=== PATIENT | female | born 1985 | race Caucasian/White ===

== ENCOUNTER → 2020-07-22 | Outpatient (CLI) | payer OTHER ==
[~2020-07-22] MED LIST: DOCUSATE SODIU100 MG PO; HYDROCODON-ACE1 EAC4 PO; IBUPROFEN600 MG PO
== END ==
LOC: RAD 13:11
DX: M54.9 Dorsalgia, unspecified (principal)
CPT/HCPCS: 72070

== ENCOUNTER → 2020-07-30 | Outpatient (CLI) | payer OTHER | LOC: US 15:00 | DX: R55 Syncope and collapse (principal); I65.23 Occlusion and stenosis of bilateral carotid arteries | CPT/HCPCS: 70450; 93880 ==

== ENCOUNTER → 2020-08-08 | Outpatient (CLI) | payer OTHER | LOC: CT 12:55 | DX: R55 Syncope and collapse (principal); R93.89 Abnormal findings on diagnostic imaging of other specified body structures | CPT/HCPCS: 70496; 70498; Q9967 ==

== ENCOUNTER → 2020-09-24 | Outpatient (CLI) | payer OTHER | LOC: MRI 14:29 | DX: M54.5 Low back pain (principal); M51.37 Other intervertebral disc degeneration, lumbosacral region | CPT/HCPCS: 72148 ==

== ENCOUNTER → 2020-12-02 | Outpatient (CLI) | payer OTHER | LOC: EMI 08:45 | DX: H54.7 Unspecified visual loss (principal) | CPT/HCPCS: 70544; 70551 ==

== ENCOUNTER → 2021-03-13 | Day surgery (SDC) | payer OTHER ==
[~2021-03-13] MED LIST changes: +LEXAPRO20 MG PO; +OMEPRAZOLE40 MG PO; +OXYBUTYNIN CHLOR5 MG PO; +VITAMIN D21250 MCG PO
[2021-03-13 10:58] LABS: HEMOGLOBIN 13.6 gm/dl (12.3-15.3); RED BLOOD COUNT 5.07 M/UL (4.00-5.10); WHITE BLOOD COUNT 8.5 K/UL (4.5-11.0)
== END | disposition home or self-care (01) ==
LOC: OR 08:30
PROVIDERS: Obstetrics & Gynecology
DX: N32.9 Bladder disorder, unspecified (principal); N32.81 Overactive bladder; F41.1 Generalized anxiety disorder; G43.909 Migraine, unspecified, not intractable, without status migrainosus; E66.9 Obesity, unspecified; K21.9 Gastro-esophageal reflux disease without esophagitis; K58.0 Irritable bowel syndrome with diarrhea; Z20.822 Contact with and (suspected) exposure to COVID-19; Z88.6 Allergy status to analgesic agent; Z91.010 Allergy to peanuts; Z88.5 Allergy status to narcotic agent; Z79.82 Long term (current) use of aspirin
CPT/HCPCS: 36415; 81001; 84703; 85025; C1769; J0585; J1100; J1885; J2001; J2250; J2405; J2704; J2765; J2795; J3010; J7120